=== PATIENT | male | born 1970 | race Caucasian/White ===

== ENCOUNTER 2023-10-15 17:54 | Inpatient (IN) | payer OTHER ==
[2023-10-15 18:31] VITALS: BMI 14.1
[2023-10-15] MEDS ORDERED: BISMUTH SUBSALICYLATE 524 MG/30 ML PO PRN (19:39)
[2023-10-15] MEDS ORDERED: ONDANSETRON *ODT* 4 MG TABLET SL PRN (19:39)
[2023-10-15] MEDS ORDERED: guaiFENesin 600 MG TABLET.ER (FP) PO PRN (19:39)
[2023-10-15] MEDS ORDERED: ACETAMINOPHEN 325 MG TABLET (FP) PO PRN (19:39)
[2023-10-15] MEDS ORDERED: NALOXONE HCL (KLOXXADO) 8 MG SPRAY NS PRN (19:39)
[2023-10-15] MEDS ORDERED: NALOXONE HCL 0.4 MG/ML VIAL IM PRN (19:39)
[2023-10-15] MEDS ORDERED: MAG HYDROX/AL HYDROX/SIMETH 30 ML UNIT-DOSE CUP PO PRN (19:39)
[2023-10-15] MEDS ORDERED: IBUPROFEN 600 MG TABLET (FP) PO PRN (19:39)
[2023-10-15] MEDS ORDERED: IBUPROFEN 400 MG TABLET (FP) PO PRN (19:39)
[2023-10-15] MEDS ORDERED: MAGNESIUM HYDROX 2400MG/30ML ORAL SUSPENSION 30 ML CUP PO PRN (19:39)
[2023-10-15] MEDS ORDERED: POLYETHYLENE GLYCOL (HEALTHYLAX) 3350 17 GM PACKET PO PRN (19:39)
[2023-10-15] MEDS ORDERED: BENZONATATE 200 MG CAPSULE PO PRN (19:39)
[2023-10-15] MEDS ORDERED: BENZOCAINE/MENTHOL (CHLORASEPTIC ) LOZENGE MM PRN (19:39)
[2023-10-15] MEDS ORDERED: NICOTINE POLACRILEX 2 MG GUM BUC PRN (19:39)
[2023-10-15] MEDS ORDERED: P-EPHED 60MG/TRIPROLIDI 2.5MG TABLET PO PRN (19:39)
[2023-10-15] MEDS ORDERED: DICYCLOMINE HCL 10 MG CAPSULE PO PRN (19:39)
[2023-10-15] MEDS ORDERED: methaDONE HCL 10 MG TABLET (FOR DETOX USE ONLY) PO ONE (22:00)
[2023-10-16] MEDS ORDERED: methaDONE HCL 10 MG TABLET (FOR DETOX USE ONLY) ONE (00:49)
[2023-10-16] MEDS ORDERED: MELATONIN 5 MG TABLETS ONE (00:55)
[2023-10-16] MEDS: MELATONIN 5 MG TABLETS PO SCH ×2 (00:58→22:55)
[2023-10-16] MEDS: THIAMINE HCL 100 MG TABLET (FP) PO SCH ×2 (00:58→22:55)
[2023-10-16] MEDS: cloNIDine HCL 0.1 MG TABLET PO PRN ×2 (01:48→17:40)
[2023-10-16 06:09] VITALS: RESP 16
[2023-10-16] MEDS: METHOCARBAMOL 500 MG TABLET PO PRN (06:19)
[2023-10-16] MEDS ORDERED: TRIMETHOBENZAMIDE HCL 200MG/2ML INJ IM PRN (09:43)
[2023-10-16] MEDS ORDERED: methaDONE HCL 10 MG TABLET (FOR DETOX USE ONLY) PO ONE (10:00)
[2023-10-16] MEDS: PRENATAL VITAMINS W/ FOLIC ACID TABLET (FP) PO SCH (10:02)
[2023-10-16] MEDS: FAMOTIDINE 20 MG TABLET PO SCH ×2 (10:03→22:55)
[2023-10-16] MEDS: LOPERAMIDE HCL 2 MG CAPSULE PO PRN (10:03)
[2023-10-16] MEDS: SODIUM CHLORIDE NASAL SPRAY 44 ML BOTTLE NS SCH ×3 (10:23→22:55)
[2023-10-16] MEDS: diazePAM 5 MG TABLET PO PRN ×3 (11:28→19:43)
[2023-10-16 14:03] LABS: HEMATOCRIT 38.5 % (35.4-49); HEMOGLOBIN 12.4 GM/dL (11.7-16.9); MCH 29.8 pg (25.7-33.7); MCHC 32.2 g/dl (32.0-35.9); MEAN CELL VOLUME 92.6 fl (80-96); MEAN PLT VOLUME 7.8 fl (7.5-11.1); PLATELET COUNT 436 10^3/uL (134-434); RBC 4.16 M/mm3 (4.00-5.60); RDW 13.5 % (11.9-15.9); WHITE BLOOD COUNT 12.7 K/mm3 (4.0-10.0)
[2023-10-16 14:05] LABS: POTASSIUM 4.5 mmol/L (3.5-5.1)
[2023-10-16 14:15] LABS: BLOOD UREA NITROGEN 20.7 mg/dL (7-18); CALCIUM 8.4 mg/dL (8.5-10.1)
[2023-10-16 14:16] LABS: ALBUMIN 3.2 g/dl (3.4-5.0)
[2023-10-16 14:19] LABS: CREATININE 0.6 mg/dL (0.55-1.3)
[2023-10-16 14:20] LABS: BILIRUBIN,TOTAL 0.2 mg/dL (0.2-1); TOT PROT 6.5 g/dl (6.4-8.2)
[2023-10-17] MEDS ORDERED: diazePAM 5 MG TABLET PO ONE (01:29)
[2023-10-17] MEDS: LOPERAMIDE HCL 2 MG CAPSULE PO PRN (03:40)
[2023-10-17] MEDS: METHOCARBAMOL 500 MG TABLET PO PRN (06:02)
[2023-10-17 06:17] VITALS: BP 111/78; PULSE 78; TEMP 97.7
[2023-10-17] MEDS ORDERED: diazePAM 5 MG TABLET PO PRN (08:56)
[2023-10-17] MEDS ORDERED: methaDONE HCL 10 MG TABLET (FOR DETOX USE ONLY) PO ONE (10:00)
[2023-10-17] MEDS: FAMOTIDINE 20 MG TABLET PO SCH (10:44)
[2023-10-17] MEDS: SODIUM CHLORIDE NASAL SPRAY 44 ML BOTTLE NS SCH (10:44)
[2023-10-17] MEDS: PRENATAL VITAMINS W/ FOLIC ACID TABLET (FP) PO SCH (10:44)
[2023-10-18] MEDS ORDERED: methaDONE HCL 10 MG TABLET (FOR DETOX USE ONLY) PO ONE ×2 (05:00→10:00)
== END 2023-10-17 10:00 | disposition left against medical advice (07) | DRG 770 ==
LOC: YASAS 17:54 → Y6N 23:52
PROVIDERS: ADMIT Allergy & Immunology; ATTEND Allergy & Immunology
PROC: HZ2ZZZZ Detoxification Services for Substance Abuse Treatment (ICD-10-PCS; principal; 2023-10-15)
DX: F11.23 Opioid dependence with withdrawal (principal); F14.20 Cocaine dependence, uncomplicated; F17.210 Nicotine dependence, cigarettes, uncomplicated; F17.290 Nicotine dependence, other tobacco product, uncomplicated; K21.9 Gastro-esophageal reflux disease without esophagitis; Z99.89 Dependence on other enabling machines and devices
CPT/HCPCS: 0241U-QW; 36415; 80053; 85027; 86780; 93005; 93010; Q0162